=== PATIENT | male | born 1960 | race Caucasian/White ===

== ENCOUNTER 2017-10-12 12:24 | Emergency (ER) | payer OTHER ==
[~2017-10-12] VITALS: Ht 167.6 cm; Wt 84.2 kg
[~2017-10-12 12:24] MED LIST: TRAMADOL HCL50 MG PO
[2017-10-12 12:29] VITALS: BP 138/92
[2017-10-12] MEDS ORDERED: NORCO 5/3251 TABLET PO (14:05)
[2017-10-12] MEDS ORDERED: KEFLEX500 MG PO (14:05)
[2017-10-12] MEDS ORDERED: NAPROSYN500 MG PO (14:05)
== END 2017-10-12 15:21 | disposition home or self-care (01) ==
LOC: EME 12:24
DX: S62.637B Displaced fracture of distal phalanx of left little finger, initial encounter for open fracture (principal); W29.8XXA Contact with other powered hand tools and household machinery, initial encounter; Y99.0 Civilian activity done for income or pay; Z23 Encounter for immunization
CPT/HCPCS: 73140; 99281; 99284; S0020